=== PATIENT | female | born 2000 | race African-American/Black ===

== ENCOUNTER 2021-01-28 14:33 | Emergency (ER) | payer SELFPAY | END 2021-01-28 16:23 | disposition home or self-care (01) | LOC: CSHERS 14:33 | DX: H92.01 Otalgia, right ear (principal) | CPT/HCPCS: 99282 ==

== ENCOUNTER 2021-05-17 12:38 | Emergency (ER) | payer SELFPAY | END 2021-05-17 15:18 | disposition home or self-care (01) | LOC: CSHERS 12:38 | DX: B37.2 Candidiasis of skin and nail (principal) | CPT/HCPCS: 99282 ==

== ENCOUNTER 2022-07-04 12:54 | Emergency (ER) | payer SELFPAY ==
[2022-07-04] MEDS ORDERED: Dexamethasone 10 MG/ML VIAL ONE (13:54)
== END 2022-07-04 14:13 ==
LOC: CSHERS 12:54
DX: R59.0 Localized enlarged lymph nodes (principal)
CPT/HCPCS: 96372; 99283; J1100

== ENCOUNTER 2024-10-03 13:30 | Emergency (ER) | payer SELFPAY ==
[2024-10-03] MEDS ORDERED: Ketorolac Tromethamine 30 MG (1 mL) VIAL ONE (14:54)
[2024-10-03] MEDS ORDERED: Dexamethasone 10 MG/ML VIAL ONE (14:54)
== END 2024-10-03 16:23 | disposition home or self-care (01) ==
LOC: CSHERS 13:30
DX: B34.9 Viral infection, unspecified (principal)
CPT/HCPCS: 87081; 87428; 87430; 96372; 99284; J1100; J1885